=== PATIENT | male | born 1980 | race Caucasian/White ===

== ENCOUNTER 2019-05-02 21:15 | Emergency (ER) | payer BC ==
[~2019-05-02] VITALS: Ht 182.9 cm; Wt 81.6 kg
[2019-05-02 21:25] VITALS: BP 149/86
[2019-05-02] MEDS ORDERED: NEOMY/BACITR/POLYMYXIN OINT PACKET. TP ONE ×2 (22:15→23:00)
--- NOTE | 2019-05-02 22:22 | PHYS DOC ---
Past Medical History Past Medical History: No Pertinent History (CHECO JANE) Past Surgical History: Other Additional Past Surgical Histo: right index finger amputation (CHECO JANE) Alcohol Use: None Drug Use: None (CHECO JANE) Attending Signature I have participated in the care of this patient and I have reviewed and agree with all pertinent clinical information above including history, exam, and recommendations. (TINO ANAND MD) Adult General Chief Complaint Chief Complaint: ANIMAL BITE HPI HPI Patient is a 39 year old male who was trying to break up a fight between his dogs and his Swedish Bulldog bit into his L forearm. He is here with swelling of the forearm, puncture wounds and scrapes and pain. He is R hand dominant. He reports that both the dogs are up to date on immunizations and he is also current on his tetanus shot. (CHECO JANE) Review of Systems Review of Systems Constitutional: Denies fever or chills [] Respiratory: Denies cough or shortness of breath [] Cardiovascular: No additional information not addressed in HPI [] GI: Denies abdominal pain, nausea, vomiting, bloody stools or diarrhea [] Musculoskeletal: Reports L arm pain Integument: Reports L arm punctures and abrasions from a dog bite Neurologic: Denies headache, focal weakness or sensory changes [] All other systems were reviewed and found to be within normal limits, except as documented in this note. (CHECO JANE) Current Medications Current Medications Current Medications Medications (Trade) Dose Ordered Sig/Salas Start Time Stop Time Status Last Admin Dose Admin Acetaminophen/ Hydrocodone Bitart (Lortab 10/325) 1 tab 1X ONCE 05/02/19 22:30 05/02/19 22:31 DC 05/02/19 22:20 1 TAB Amoxicillin/ Clavulanate Potassium (Augmentin 875/ 125mg) 1 tab 1X ONCE 05/02/19 22:30 05/02/19 22:31 DC 05/02/19 22:19 1 TAB Bacitracin (Bacitracin Zinc Oint Pkt) 1 pkt 1X ONCE 05/02/19 22:30 05/02/19 22:31 Cancel Neomycin/ Polymyxin/ Bacitracin (Triple Antibiotic Ointment) 1 pkt 1X ONCE 05/02/19 23:00 05/02/19 22:51 DC 05/02/19 22:30 1 PKT (TINO ANAND MD) Allergies Allergies Allergies Coded Allergies Type Severity Reaction Last Updated Verified No Known Drug Allergies 05/02/19 No (TINO ANAND MD) Physical Exam Physical Exam Constitutional: Well developed, well nourished, no acute distress, non-toxic appearance. Neck: Normal range of motion, no tenderness, supple, no stridor. [] Cardiovascular:Heart rate regular rhythm, no murmur [] Lungs & Thorax: Bilateral breath sounds clear to auscultation [] Abdomen: Bowel sounds normal, soft, no tenderness, no masses, no pulsatile masses. [] Skin: Punctures and abrasions to anterior and posterior L forearm, bleeding controlled. Back: No tenderness, no CVA tenderness. [] Extremities: Left forearm tenderness, edema and puncture wounds Neurologic: Alert and oriented X 3, normal motor function, normal sensory function, no focal deficits noted. [] Psychologic: Affect normal, judgement normal, mood normal. [] (CHECO JANE) Current Patient Data Vital Signs Vital Signs Date Time Temp Pulse Resp B/P (MAP) Pulse Ox O2 Delivery O2 Flow Rate FiO2 05/02/19 22:20 19 99 Room Air 05/02/19 21:25 98.5 90 149/86 (107) 98.5 (TINO ANAND MD) EKG EKG [] (CHECO JANE) Radiology/Procedures Radiology/Procedures [] (CHECO JANE) Course & Med Decision Making Course & Med Decision Making Pertinent Labs and Imaging studies reviewed. (See chart for details) The wounds were cleansed with wound carpet cleaner and saline and then covered in antibiotic ointment and bandaged. Xray neg for FB or fracture. Pt will be started on Augmentin. Recommend wound recheck with PCP (CHECO JANE) Dragon Disclaimer Dragon Disclaimer This electronic medical record was generated, in whole or in part, using a voice recognition dictation system. (CHECO JANE) Departure Departure Impression: Primary Impression: Dog bite of left arm Disposition: 01 HOME, SELF-CARE Condition: IMPROVED Referrals: RAUL SIMENTAL (PCP) Patient Instructions: Animal Bite, [id number] Additional Instructions: Keep area clean and monitor for infection. Follow up with PCP as needed. Scripts Hydrocodone/Apap 5-325 (NORCO 5-325 TABLET) 1 Each Tablet 1-2 TAB PO Q4-6HRS PRN for PAIN, #15 TAB Prov: CHECO JANE 05/02/19 Amoxicillin/Potassium Clav (AUGMENTIN 875-125 TABLET) 1 Each Tablet 1 TAB PO BID for 10 Days, #20 TAB 0 Refills Prov: CHECO JANE 05/02/19 CHECO JANE May 02, 2019 22:22 TINO ANAND MD May 02, 2019 23:56
[2019-05-02] MEDS ORDERED: AMOXICILLIN/K CLAV 875/125MG TABLET. PO ONE (22:30)
[2019-05-02] MEDS ORDERED: BACITRACIN TOPICAL OINT PACKET. TP ONE (22:30)
[2019-05-02] MEDS ORDERED: HYDROcodone/APAP 10/325 1 TAB TABLET PO ONE (22:30)
[2019-05-02] MEDS ORDERED: AMOX1TAB61 PO (22:40)
[2019-05-02] MEDS ORDERED: HYDR-3164 PO (22:40)
--- NOTE | 2019-05-02 22:44 | RAD ---
Left forearm 2 views 05/02/2019. Reason for exam: Dog bite. No fracture or dislocation is seen. There is no apparent foreign body. Some soft tissue air is visible, consistent with bite. IMPRESSION: No acute bony abnormality. Electronically signed by: Pipe Elkins Jr., MD (05/02/2019 10:41 PM) [id number]
== END 2019-05-02 22:51 | disposition home or self-care (01) ==
LOC: ER 21:15
DX: S51.832A Puncture wound without foreign body of left forearm, initial encounter (principal); R60.9 Edema, unspecified; Z98.890 Other specified postprocedural states; W54.0XXA Bitten by dog, initial encounter; Y93.89 Activity, other specified; Y92.89 Other specified places as the place of occurrence of the external cause; Y99.8 Other external cause status
CPT/HCPCS: 73090; 99284